=== PATIENT | female | born 1955 | race Caucasian/White ===

== ENCOUNTER → 2020-09-14 | Day surgery (SDC) | payer MEDICARE, OTHER ==
[~2020-09-14] MED LIST: ALL DAY ALLERGY10 MG PO; ASPIRIN EC81 MG PO; ATARAX25 MG PO; BACLOFEN 20MG T20 MG PO; CYMBALTA60 MG PO; DAILY VITE1 EACH PO; HYDRALAZINE25 MG PO; HYDROCODON-ACE1 EAC6 PO; K-DUR20 MEQ PO; KLONOPIN1 MG PO; LINZESS145 MCG PO; LOVAZA1 GM PO; MIRAPEX1 MG PO; NITROQUIK SL0.4 MG SL; PROTONIX 40MG T40 MG PO; TOPROL XL 25MG25 MG PO; TRAZODONE 50MG50 MG PO; TRELEGY ELLIPT1 EACH PO; VITAMIN D325 MC2 PO; ZETIA10 MG PO; ZOCOR20 MG PO
== END | disposition home or self-care (01) ==
LOC: FAS 08:50
DX: K52.9 Noninfective gastroenteritis and colitis, unspecified (principal); K57.30 Diverticulosis of large intestine without perforation or abscess without bleeding; K22.70 Barrett's esophagus without dysplasia; K76.0 Fatty (change of) liver, not elsewhere classified; F17.210 Nicotine dependence, cigarettes, uncomplicated; I12.9 Hypertensive chronic kidney disease with stage 1 through stage 4 chronic kidney disease, or unspecified chronic kidney disease; N18.30 Chronic kidney disease, stage 3 unspecified; F41.9 Anxiety disorder, unspecified; F32.9 Major depressive disorder, single episode, unspecified; K21.9 Gastro-esophageal reflux disease without esophagitis; K92.1 Melena; J44.9 Chronic obstructive pulmonary disease, unspecified; Z86.010 Personal history of colon polyps; Z20.822 Contact with and (suspected) exposure to COVID-19
CPT/HCPCS: 88305; J2250; J2704; J7120